=== PATIENT | male | born 1955 | race African-American/Black ===

== ENCOUNTER 2024-09-13 10:10 | Inpatient (IN) | payer MEDICARE, OTHER ==
[~2024-09-13] VITALS: Ht 175.3 cm; Wt 89.3 kg
[2024-09-13] MEDS: LevETIRAcetam 1,000 MG in DEXTROSE 5%-WATER 100 ML IV ONE (10:27)
[2024-09-13 10:36] LABS: PLATELET COUNT (AUTO) 106 K/uL (150-450); RED BLOOD CELL COUNT(AUTO) 4.61 MIL/uL (4.50-5.90); RED CELL DISTRIBUTION WIDTH 14.4 % (11.5-14.5); WHITE BLOOD COUNT (AUTO) 4.2 K/uL (4.5-11.0)
[2024-09-13 10:45] LABS: CALCIUM, TOTAL 8.3 mg/dL (8.8-10.5); CREATININE 1.69 mg/dL (0.60-1.30); GLOMERULAR FILTR. RATE CALC 40 mL/min (>60); GLUCOSE,RANDOM 137 mg/dL (70-110); SODIUM SERUM 142 mmol/L (136-145); UREA NITROGEN, BLOOD 15 mg/dL (7-18)
[2024-09-13 10:49] LABS: ASPARTATE AMINOTRANSFERASE 18.0 U/L (15-37); CREATINE KINASE, TOTAL ONLY 182.0 U/L (39-308); TOTAL PROTEIN, SERUM 7.5 g/dL (6.4-8.2)
[2024-09-13 10:51] LABS: TROPONIN I-HIGH SENSITIVITY 6 ng/L (<76)
[2024-09-13] MEDS: ACETAMINOPHEN 500 MG TABLET PO ONE (11:32)
[2024-09-13] MEDS: SODIUM CHLORIDE 0.9% 1,000 ML IV ONE (11:32)
[2024-09-13] MEDS ORDERED: BISACODYL 10 MG RECTAL RECTAL SUPPOSITORY PR PRN (12:45)
[2024-09-13] MEDS ORDERED: LORazepam 2 MG/ML VIAL IVP PRN (12:45)
[2024-09-13] MEDS ORDERED: MORPHINE SULFATE 2 MG/ML SYRINGE IVP PRN (12:45)
[2024-09-13] MEDS ORDERED: MAGNESIUM HYDROXIDE SUSPENSION 30 ML UDCUP PO PRN (12:45)
[2024-09-13] MEDS ORDERED: ZOLPIDEM TARTRATE 5 MG TABLET PO PRN (12:45)
[2024-09-13] MEDS ORDERED: ACETAMINOPHEN 325 MG TABLET PO PRN (12:45)
[2024-09-13 13:40] VITALS: BP 126/83; PULSE 74; RESP 18; TEMP 97.7; O2SAT 98
[2024-09-13] MEDS: ONDANSETRON HCL 4 MG/2 ML VIAL IVP PRN (14:33)
[2024-09-13] MEDS ORDERED: INSULIN LISPRO 100 UNITS/ML SQ PRN (15:15)
[2024-09-13] MEDS ORDERED: DEXTROSE 50%-WATER 25 GM/50 ML SYRINGE IVP PRN (15:15)
[2024-09-13 15:50] VITALS: BP 129/82; PULSE 67; RESP 18; TEMP 98.1; O2SAT 99
[2024-09-13] MEDS: HEPARIN SODIUM,PORCINE 5,000 UNITS/ML VIAL SQ SCH (16:23)
[2024-09-13] MEDS: HYDROCODONE/ACETAMINOPHEN 5-325 MG TABLET PO PRN (16:23)
[2024-09-13] MEDS ORDERED: INSU100I24 SQ (18:07)
[2024-09-13] MEDS ORDERED: ATOR-2 PO (18:09)
[2024-09-13] MEDS ORDERED: QUET50TA15 PO (18:09)
[2024-09-13] MEDS ORDERED: SACU1TAB PO (18:09)
[2024-09-13] MEDS ORDERED: EMPA25TA3 PO (18:09)
[2024-09-13] MEDS ORDERED: AMIT25TA22 PO (18:09)
[2024-09-13] MEDS ORDERED: INSU100I32 SQ (18:09)
[2024-09-13] MEDS ORDERED: LOSA-381 PO (18:09)
[2024-09-13 18:55] LABS: APPEARANCE,URINE CLEAR (CLEAR); GLUCOSE, URINE (UA) TRACE mg/dL (NEGATIVE); LEUKOCYTE ESTERASE ,URINE NEGATIVE (NEGATIVE); NITRATE,URINE NEGATIVE (NEGATIVE); OCCULT BLOOD,URINE NEGATIVE (NEGATIVE); PH,URINE DRUG SCREEN 6.5 (5.0-8.0); SPECIFIC GRAVITIY, URINE 1.022 (1.003-1.030)
[2024-09-13 18:58] LABS: SQUAMOUS EPITHELIAL CELL,UR Few /LPF (None Seen)
[2024-09-13 19:02] LABS: ALCOHOL, URINE DRUG SCREEN NEGATIVE (NEGATIVE); AMPHET/METH SCREEN,URINE NEGATIVE (NEGATIVE); BARBITURATE SCREEN, URINE NEGATIVE (NEGATIVE); CANNABINOID SCREEN,URINE NEGATIVE (NEGATIVE); COCAINE SCREEN,URINE NEGATIVE (NEGATIVE); METHADONE SCREEN, URINE NEGATIVE (NEGATIVE)
[2024-09-13 20:00] VITALS: BP 134/83; PULSE 68; RESP 20; TEMP 97.9; O2SAT 99
[2024-09-13 20:11] LABS: GLUCOMETER DEV NAME(LOC) 5S.2D; GLUCOSE,POINT OF CARE 80 MG/DL (70-110)
[2024-09-13] MEDS: DOCUSATE SODIUM 100 MG CAPSULE PO SCH (20:42)
[2024-09-13] MEDS: SACUBITRIL/VALSARTAN 24-26 MG TABLET PO SCH (20:42)
[2024-09-13] MEDS: MELATONIN 5 MG TABLET PO PRN (21:37)
[2024-09-13 23:48] VITALS: BP 126/88; PULSE 70; RESP 19; TEMP 98.4; O2SAT 97
[2024-09-14] MEDS: ALBUTEROL SULFATE 2.5 MG/0.5 ML NEB SOLUTION NEB PRN (00:30)
[2024-09-14 04:00] VITALS: BP 113/63; PULSE 66; RESP 18; TEMP 97.9; O2SAT 95
[2024-09-14 05:25] LABS: GLUCOMETER DEV NAME(LOC) 5S.2D; GLUCOSE,POINT OF CARE 106 MG/DL (70-110)
[2024-09-14 05:46] LABS: GLUCOMETER DEV NAME(LOC) 5S.1D; GLUCOSE,POINT OF CARE 117 MG/DL (70-110)
[2024-09-14 07:04] LABS: PLATELET COUNT (AUTO) 107 K/uL (150-450); RED BLOOD CELL COUNT(AUTO) 4.47 MIL/uL (4.50-5.90); RED CELL DISTRIBUTION WIDTH 13.9 % (11.5-14.5); WHITE BLOOD COUNT (AUTO) 4.2 K/uL (4.5-11.0)
[2024-09-14 07:13] LABS: CALCIUM, TOTAL 8.3 mg/dL (8.8-10.5); CREATININE 1.45 mg/dL (0.60-1.30); GLOMERULAR FILTR. RATE CALC 58.0 mL/min (>60); GLUCOSE,RANDOM 89.0 mg/dL (70-110); SODIUM SERUM 142.0 mmol/L (136-145); UREA NITROGEN, BLOOD 15.0 mg/dL (7-18)
[2024-09-14 08:40] VITALS: BP 116/79; PULSE 67; RESP 19; TEMP 97.7; O2SAT 97
[2024-09-14] MEDS: ATORVASTATIN CALCIUM 40 MG TABLET PO SCH (08:41)
[2024-09-14] MEDS: PANTOPRAZOLE SODIUM 40 MG DR TABLET PO SCH (08:41)
[2024-09-14 10:56] LABS: GLUCOMETER DEV NAME(LOC) 5S.1D; GLUCOSE,POINT OF CARE 93 MG/DL (70-110)
[2024-09-14 11:16] VITALS: BP 123/59; PULSE 65; RESP 19; TEMP 98.1; O2SAT 98
[2024-09-14 15:10] VITALS: BP 131/62; PULSE 70; RESP 18; TEMP 98; O2SAT 97
[2024-09-14 18:05] LABS: GLUCOMETER DEV NAME(LOC) 5S.1D; GLUCOSE,POINT OF CARE 104 MG/DL (70-110)
[2024-09-14 18:05] LABS: GLUCOMETER DEV NAME(LOC) 5S.1D; GLUCOSE,POINT OF CARE 100 MG/DL (70-110)
== END 2024-09-14 18:50 | disposition short-term general hospital (02) | DRG 100 ==
LOC: EMS 10:13 → EDH 11:12 → 5S 13:16
PROVIDERS: ADMIT Internal Medicine; ATTEND Internal Medicine
DX: G40.89 Other seizures (principal); G93.41 Metabolic encephalopathy; N17.9 Acute kidney failure, unspecified; Z59.01 Sheltered homelessness; I50.9 Heart failure, unspecified; E11.9 Type 2 diabetes mellitus without complications; E78.5 Hyperlipidemia, unspecified; I11.0 Hypertensive heart disease with heart failure; Z79.899 Other long term (current) drug therapy
CPT/HCPCS: 70450; 71045; 80048; 80076; 80307; 81001; 82550; 82962; 83735; 83880; 84484; 85025; 85610; 85730; 87081; 93005; 94640; 96361; 96374; 99285; J0712; J1644; J2405; J7060; 36415-L1; 36415-TC; J7613